=== PATIENT | male | born 1970 | race Caucasian/White ===

== ENCOUNTER 2016-04-01 21:16 | Emergency (ER) | payer BC ==
[2016-04-01] MEDS ORDERED: DIPH,PERTUS(ACELL)TETVAC-LF 0.5 ML VIAL IM ONE (21:49)
[2016-04-01] MEDS ORDERED: PROPARACAINE 0.5% OPHTH DROPS 15 ML BTL LEFT EYE STA (21:59)
[2016-04-01] MEDS ORDERED: PROPARACAINE 0.5% OPHTH DROPS 15 ML BTL LEFT EYE SCH (22:00)
--- NOTE | 2016-04-01 22:17 | ED ---
General Adult HPI - General Chief complaint: Wound/Laceration Stated complaint: head lac Time Seen by Provider: 04/01/16 21:38 Source: patient, RN notes reviewed Mode of arrival: ambulatory Limitations: no limitations - History of Present Illness Initial comments: This is a 45-year-old male presents with a laceration to the left side head. Patient states he was using resistance bands connected to a door to work out with when the door opened and 2 metal springs hit him in the left-sided head and left-sided jaw. Patient did not lose consciousness but is complaining of headache. Patient states he feels a foreign body sensation to the left eye and has noticed some blurred vision. Patient denies any neck pain or back pain. Patient is unsure if he is up-to-date on his tetanus shot. Patient denies any nausea or vomiting. Patient denies any recent fever, chills, shortness breath, chest pain, abdominal pain, nausea/vomiting/diarrhea, back pain, numbness, tingling, hematuria, or any other complaints. - Related Data Previous Rx's Medication Instructions Recorded Erythromycin Ophth Oint [Romycin 1 applic LEFT EYE QID 5 Days 04/01/16 Ophth Oint] HYDROcodone/APAP 5-325MG [Benedict 1 tab PO Q6HR #7 tab 04/01/16 5-325] Allergies Allergy/AdvReac Type Severity Reaction Status Date / Time Penicillins Allergy Rash/Hives Verified 04/01/16 21:21 Review of Systems ROS Statement: Those systems with pertinent positive or pertinent negative responses have been documented in the HPI. ROS Other: All systems not noted in ROS Statement are negative. Past Medical History Additional Past Medical History / Comment(s): back pain History of Any Multi-Drug Resistant Organisms: None Reported Past Surgical History: No Surgical Hx Reported Past Psychological History: No Psychological Hx Reported Smoking Status: Never smoker Past Alcohol Use History: None Reported Past Drug Use History: None Reported General Exam - General Exam Comments Initial Comments: General: The patient is awake and alert, in no distress, and does not appear acutely ill. Eye: Left eye with conjunctival injection. No foreign body noted with direct visualization or with eyelid inversion. Pupils are equal, round and reactive to light, extra-ocular movements are intact. No nystagmus. No signs of icterus. Visual acuity is equal on both sides. Patient does not have his glasses with him today. Mouth and throat: There is tenderness to palpation over the lower left side with localized swelling and erythema to this area. No laceration to the outside or inside the mouth. No loose teeth. Patient is able to bite down with strength 5/5. There are moist mucous membranes and no oral lesions. Neck: The neck is supple, there is no tenderness or JVD. No cervical midline tenderness. Cardiovascular: There is a regular rate and rhythm. No murmur, rub or gallop is appreciated. Respiratory: Lungs are clear to auscultation, respirations are non-labored, breath sounds are equal. No wheezes, stridor, rales, or rhonchi. Musculoskeletal: Normal ROM, no tenderness. Strength 5/5. Sensation intact. Radial pulses equal bilaterally 2+. Neurological: A&O x 3. CN II-XII intact, There are no obvious motor or sensory deficits. Coordination appears grossly intact. Speech is normal. Skin: There is an approximately 3 cm laceration to the left side scalp. There is some localized erythema and mild swelling around this area but no ecchymosis. Skin is warm and dry and no rashes or lesions are noted. Psychiatric: Cooperative, appropriate mood & affect, normal judgment. Limitations: no limitations Course Vital Signs 04/01/16 04/01/16 21:20 23:35 Temperature 98.1 F 97.7 F Pulse Rate 81 67 Respiratory 20 18 Rate Blood Pressure 136/90 142/84 O2 Sat by Pulse 98 99 Oximetry Procedures - Procedures Initial comment: Proparacaine was used to anesthetize the eye and fluorescein stain was applied to the left eye. Patient noticed relief after proparacaine was applied to the left. The left eye was viewed under the slit lamp and sim lamp. Corneal abrasion noted to the 4:00 area of the eye near the center of the eye. No foreign body was noted. Patient tolerated procedure well. The skin was anesthetized with 1% lidocaine. The laceration was then cleansed and irrigated with normal saline. The wound was inspected, and there was no evidence of injury to deep structures. No foreign body was noted in the wound. A total of 9 skin sutures were placed utilizing 5-0 Ethilon. Patient tolerated procedure well. Medical Decision Making - Medical Decision Making Is a 45-year-old male presents after getting hit in the head with workout equipment. On physical exam patient is neurologically intact. Left eye with conjunctival injection. No foreign body noted with direct visualization or with eyelid eversion. Pupils are equally round and reactive to light, extraocular movements are intact. There is an approximately 3cm laceration to the left side scalp. With some localized erythema and mild swelling but no ecchymosis. There is some localized swelling to the lower left jaw line that is tender to palpation with some localized erythema. Patient is able to bite down with strength 5/5. Xray of the mandible was done and reviewed showing: Negative mandible exam. Reported by Dr. Sandoval. Discussed results with patient. Patient was given a tylenol in the EC today for pain. Patient received a tetanus shot in the EC today. Proparacaine was used to anesthetize the eye and fluorescein stain was applied to the left eye. Patient noticed relief after proparacaine was applied to the left eye. The left eye was viewed under the slit lamp and sim lamp. Corneal abrasion noted to the 4:00 area of the eye near the center of the eye. No foreign body was noted. Patient tolerated procedure well. The skin was anesthetized with 1% lidocaine. The laceration was then cleansed and irrigated with normal saline. The wound was inspected, and there was no evidence of injury to deep structures. No foreign body was noted in the wound. A total of 9 skin sutures were placed utilizing 5-0 Ethilon. Discussed that if eye is not feeling 100% better by tomorrow night that he should schedule a follow-up appointment with ophthalmology. Discussed the patient will receive a prescription for antibiotic opthalmic ointment and Benedict. Discussed suture care with the patient. Discussed that sutures should be removed in 5 days. Discussed keep area clean and dry. Discussed signs and symptoms of worsening head injury. Discussed return parameters. Discussed that patient should follow up with PCP in one to 2 days or return to the EC for any worsening symptoms or for any further concerns. Patient was receptive to this plan and patient will be discharged home. I discussed this case with attending physician Dr. Leon who also examined the patient and agrees the plan as stated above. Disposition Clinical Impression: Laceration, Corneal abrasion Disposition: HOME SELF-CARE Condition: Good Instructions: Corneal Abrasion (ED), Care For Your Stitches (ED), Laceration ( ED) Additional Instructions: Please use ophthalmic ointment as prescribed. Please follow-up with ophthalmology if symptoms are not improved by tomorrow. Please have sutures removed in 5 days. Please follow-up with family doctor in the next 2 days of symptoms have not improved. Please return to emergency room if the symptoms increase or worsen or for any other concerns. Prescriptions: Erythromycin Ophth Oint [Romycin Ophth Oint] 1 applic LEFT EYE QID 5 Days HYDROcodone/APAP 5-325MG [Benedict 5-325] 1 tab PO Q6HR #7 tab Referrals: None,Stated [REFERRING] - 1-2 days Lilian Vaughan MD [STAFF PHYSICIAN] - 1-2 days Time of Disposition: 23:19
[2016-04-01] MEDS ORDERED: ERYTHROMYCIN 5 MG/GM OPHTH OINT 3.5 GM TUBE LEFT EYE STA (22:46)
--- NOTE | 2016-04-01 22:53 | XR ---
EXAMINATION TYPE: XR mandible complete DATE OF EXAM: 04/01/2016 10:49 PM COMPARISON: NONE HISTORY: Jaw pain TECHNIQUE: 5 views FINDINGS: The mandibular ring appears intact. I see no fracture. Maxilla appears intact. The temporom andibular joints appear normal. IMPRESSION: Negative mandible exam.
[2016-04-01] MEDS ORDERED: HYDROcodone/APAP 5-325MG 1 EACH TAB PO STA (23:17)
[2016-04-01] MEDS ORDERED: ACETAMINOPHEN TAB 500 MG TAB PO STA (23:23)
[2016-04-01 23:36] VITALS: BP 142/84; PULSE 67; RESP 18; TEMP 97.7
== END 2016-04-01 23:41 | disposition home or self-care (01) ==
LOC: EC 21:16
DX: S01.01XA Laceration without foreign body of scalp, initial encounter (principal); S05.02XA Injury of conjunctiva and corneal abrasion without foreign body, left eye, initial encounter; Z23 Encounter for immunization; Z88.0 Allergy status to penicillin; W20.8XXA Other cause of strike by thrown, projected or falling object, initial encounter; Y93.B9 Activity, other involving muscle strengthening exercises
CPT/HCPCS: 12002; 70110; 90471; 90715; 99283

== ENCOUNTER 2017-12-08 06:46 | Emergency (ER) | payer BC ==
[2017-12-08 07:09] VITALS: RESP 18
[2017-12-08] MEDS ORDERED: KETOROLAC 60 MG/2 ML VIAL IM STA (07:23)
[2017-12-08] MEDS ORDERED: ORPHENADRINE 30 MG/ML 2 ML VIAL IM STA (07:23)
[2017-12-08] MEDS ORDERED: DEXAMETHASONE SOD PHOSPHATE 10 MG/ML 1 ML VIAL IM STA (07:23)
--- NOTE | 2017-12-08 07:26 | ED ---
Back Pain HPI - General Chief Complaint: Back Pain/Injury Stated Complaint: Back pain Time Seen by Provider: 12/08/17 07:11 Source: patient, RN notes reviewed, old records reviewed Limitations: no limitations - History of Present Illness Initial Comments: 37-year-old male presents emergency department today with chief complaint of lower back pain. He reports that he isn't having back pain for the past 4 days. He reports he woke up the pain. Denies any heavy lifting or straining. Patient states that when he takes a few steps or slight twisting motion and he has a shooting pain on his left lower back. He reports no radiculopathy. Denies any saddle anesthesias. Patient states that he has had normal urine symptoms. Patient denies bowel or urinary incontinence. Patient states that he 's had this happen once before in the past and did follow-up with database management specialist. He had an MRI 3 years ago. He reports that he was told it was normal this time. He states that he does usually have this pain about once a year. - Related Data Previous Rx's Medication Instructions Recorded Erythromycin Ophth Oint [Romycin 1 applic LEFT EYE QID 5 Days gm 04/01/16 Ophth Oint] HYDROcodone/APAP 5-325MG [Compton 1 tab PO Q6HR #7 tab 04/01/16 5-325] Cyclobenzaprine [Flexeril] 10 mg PO TID #12 tab 12/08/17 Dexamethasone 0.75 mg PO DAILY #12 tab 12/08/17 HYDROcodone/APAP 5-325MG [Compton 1 tab PO Q6HR PRN 3 Days #10 tab 12/08/17 5-325] Allergies Allergy/AdvReac Type Severity Reaction Status Date / Time Penicillins Allergy Rash/Hives Verified 04/01/16 21:21 Review of Systems ROS Statement: Those systems with pertinent positive or pertinent negative responses have been documented in the HPI. ROS Other: All systems not noted in ROS Statement are negative. Past Medical History Additional Past Medical History / Comment(s): back pain History of Any Multi-Drug Resistant Organisms: None Reported Past Surgical History: No Surgical Hx Reported Past Psychological History: No Psychological Hx Reported Smoking Status: Current every day smoker Past Alcohol Use History: None Reported Past Drug Use History: None Reported General Exam - General Exam Comments Initial Comments: 47-year-old male. Alert and oriented. No significant distress. General: Well appearing, well nourished, in no distress. Oriented x 3, normal mood and affect . Ambulating without difficulty. Skin: Good turgor, no rash, unusual bruising or prominent lesions Hair: Normal texture and distribution. Neck: Supple, without lesions, bruits, or adenopathy, thyroid non-enlarged and non-tender Heart: No cardiomegaly or thrills; regular rate and rhythm, no murmur or gallop Lungs: Clear to auscultation and percussion Back: Spine normal without deformity or tenderness, no CVA tenderness, Patient reports pain with ambulation over the left lumbar spine. Rectal: Normal sphincter tone, no hemorrhoids or masses palpable Extremities: No amputations or deformities, cyanosis, edema or varicosities, peripheral pulses intact Musculoskeletal: Normal gait and station. No misalignment, asymmetry, crepitation, defects, tenderness, masses, effusions, decreased range of motion, instability, atrophy or abnormal strength or tone in the head, neck, spine, ribs , pelvis or extremities. Neurologic: CN 2-12 normal. Sensation to pain, touch, and proprioception normal. Psychiatric: Oriented X3, intact recent and remote memory, judgment and insight , normal mood and affect. Limitations: no limitations Course Vital Signs 12/08/17 07:07 Temperature 98.3 F Pulse Rate 66 Respiratory 18 Rate Blood Pressure 125/85 O2 Sat by Pulse 99 Oximetry Medical Decision Making - Medical Decision Making 47-year-old male presents with for his back pain. He did see a chiropractor. He reports a that shooting pain. Patient had IM Toradol and Norflex and dexamethasone. Patient has no radicular process. Normal sensation of the legs. No saddle anesthesias. X-ray of lumbar spine shows evidence of left- sided truncal curvature likely related muscle spasm. No evidence of any acute disease within spine. Urinalysis was negative. At this time Patient will be treated for muscle spasm and likely pinched nerve. Given referral for spinal specialist. We'll discharge patient's reports the pain medication muscle relaxers steroid. Patient received treatment will comply. Return parameters were discussed. - Lab Data Lab Results 12/08/17 Range/Units 07:27 Urine Color Yellow Urine Appearance Clear (Clear) Urine pH 6.0 (5.0-8.0) Ur Specific [place] 1.019 (1.001-1.035) Urine Protein Negative (Negative) Urine Glucose (UA) Negative (Negative) Urine Ketones Negative (Negative) Urine Blood Negative (Negative) Urine Nitrite Negative (Negative) Urine Bilirubin Negative (Negative) Urine Urobilinogen <2.0 (<2.0) mg/dL Ur Leukocyte Esterase Negative (Negative) - Radiology Data Radiology results: report reviewed Leftward truncal shift may be positional or secondary muscle spasm. Multilevel degenerative disease. No vertebral compression collapse or malalignment. Disposition Clinical Impression: Lumbar paraspinal muscle spasm, Acute low back pain Disposition: HOME SELF-CARE Condition: Good Instructions: Acute Low Back Pain (ED) Additional Instructions: Patient has follow-up with primary care provider. Return to emergency department if any alarming signs or symptoms occur. Prescriptions: Cyclobenzaprine [Flexeril] 10 mg PO TID #12 tab Dexamethasone 0.75 mg PO DAILY #12 tab HYDROcodone/APAP 5-325MG [Compton 5-325] 1 tab PO Q6HR PRN 3 Days #10 tab PRN Reason: Pain Is patient prescribed a controlled substance at d/c from ED?: Yes When asked, does pt state using other controlled substances?: No If prescribed controlled substance>3 days was MAPS reviewed?: Prescribed <3 Days If opioid is for acute pain is fill amount 7 days or less?: Yes If Rx opioid, was Start Talking consent form obtained?: Yes Referrals: Jarocho Stafford MD [Primary Care Provider] - 1-2 days Time of Disposition: 08:24
[2017-12-08 07:46] LABS: Appearance,Urine Clear (Clear); Bilirubin,Urine Negative (Negative); Blood,Urine Negative (Negative); Color,Urine Yellow; Glucose,Urine (UA) Negative (Negative); Ketones,Urine Negative (Negative); Leukocyte Esterase,Urine Negative (Negative); Nitrite,Urine Negative (Negative); Protein,Urine Negative (Negative); Specific Gravity,Urine 1.019 (1.001-1.035); Urobilinogen,Urine <2.0 mg/dL (<2.0)
--- NOTE | 2017-12-08 08:03 | XR ---
EXAMINATION TYPE: XR lumbar spine 2 or 3V DATE OF EXAM: 12/08/2017 COMPARISON: NONE HISTORY: 47-year-old male low back pain for 2 days TECHNIQUE: 3 views FINDINGS: 5 lumbar type vertebral bodies. There is leftward truncal shift which may be positional. Mild multile arlette endplate spondylosis and mild facet arthropathy lower lumbar spine. Vertebral body heights are pr eserved and alignment is maintained. IMPRESSION: Leftward truncal shift may be positional or could be secondary to muscle spasm. There is mild multile arlette degenerative disc disease. No vertebral compression collapse or malalignment.
[2017-12-08 08:21] VITALS: BP 120/73; PULSE 63; TEMP 97
== END 2017-12-08 08:34 | disposition home or self-care (01) ==
LOC: EC 06:46
DX: M62.830 Muscle spasm of back (principal); F17.200 Nicotine dependence, unspecified, uncomplicated; Z88.0 Allergy status to penicillin
CPT/HCPCS: 81003; 72100; 99284; 96372 ×3; J1100; J2360; J1885

== ENCOUNTER 2021-02-01 06:59 | Day surgery (SDC) | payer BC ==
[2021-01-30 13:08] VITALS: BMI 25.7
[2021-02-01 07:26] VITALS: RESP 16; TEMP 97.7
[2021-02-01] MEDS ORDERED: LACTATED RINGERS 1,000 ML IV ONE (07:27)
[2021-02-01] MEDS ORDERED: PROPOFOL 10 MG/ML 20 ML VIAL IV ONE (08:05)
[2021-02-01] MEDS ORDERED: LIDOCAINE 1% INJ 10MG/ML (20 ML MDV) ONE (08:05)
--- NOTE | 2021-02-01 08:20 | P.PCN ---
Date of Procedure: 02/01/21 Procedure(s) Performed: BRIEF HISTORY: Patient is a 50-year-old pleasant white male scheduled for an elective colonoscopy as a part of screening for colorectal neoplasia. PROCEDURE PERFORMED: Colonoscopy. PREOPERATIVE DIAGNOSIS: Screening for colon cancer. IV sedation per Anesthesia. PROCEDURE: After informed consent was obtained, the patient, was brought into the endoscopy unit. IV sedation was administered by Anesthesia under continuous monitoring. Digital rectal examination was normal. Initially the Olympus CF-160 flexible video colonoscope was then inserted in the rectum, gradually advanced into the cecum without any difficulty. Careful examination was performed as the scope was gradually being withdrawn. Ileocecal valve and the appendiceal orifice were visualized and appeared normal. Prep was excellent. Mucosa of the cecum, ascending colon, transverse colon, descending colon, sigmoid colon, and rectum appeared normal. Retroflexion was performed in the rectum and no lesions were seen. The patient tolerated the procedure well. IMPRESSION: Normal-appearing colon from rectum to cecum with no evidence of colorectal neoplasia . RECOMMENDATIONS: Findings of this examination were discussed with the patient as well as his family.. He was advised to have a repeat screening colonoscopy in 10 years
[2021-02-01 08:47] VITALS: BP 121/72; PULSE 60
== END 2021-02-01 09:16 | disposition home or self-care (01) ==
LOC: ORWHC2ENDO 06:59
PROVIDERS: ATTEND Internal Medicine Gastroenterology
DX: Z12.11 Encounter for screening for malignant neoplasm of colon (principal)
CPT/HCPCS: 45378; J2001; J2704

== ENCOUNTER → 2022-07-14 | Outpatient (CLI) | payer BC ==
--- NOTE | 2022-07-14 23:03 | MR ---
EXAMINATION TYPE: MR lumbar spine wo con DATE OF EXAM: 07/14/2022 COMPARISON: Lumbar spine x-ray December 08, 2017 HISTORY: Low back pain for 6-7 years. Intervertebral disc disorder. TECHNIQUE: Multiplanar, multisequence imaging of the lumbar spine is performed without IV contrast. FINDINGS: Sagittal images of the lumbar spine show vertebral body heights and alignment to appear sat isfactory. Prominent Schmorl node inferior L3 endplate sagittal image 8 is noted. Multilevel disc ariela iccation L3-L4 through the L5-S1 levels but the disc space heights are preserved. The conus medullar is is normal in position and signal ending at mid L1 level. The bone marrow signal intensity is with in normal limits. Axial images show T12-L1 and L1-L2 levels to appear within normal limits. Axial images L2-L3 level shows mild broad-based posterior disc protrusion and mild facet arthropathy bilaterally. Spinal canal is preserved. Axial images at L3-L4 level shows mild mild broad-based posterior disc protrusion mildly effacing the anterior thecal sac and causing mild bilateral anterior inferior neural foraminal narrowing. Axial images at L4-L5 level show mild facet arthropathy bilaterally. There is mild/moderate broad-bas ed disc bulge causing moderate left greater than right bilateral neural foraminal narrowing and mild effacement of the anterior thecal sac. Axial images at L5-S1 level show small broad-based disc protrusion and mild facet arthropathy bilater ally. There is mild left and moderate right-sided neural foraminal narrowing. Right foraminal compone nt may efface the right L5 nerve on sagittal image 13. Paraspinal muscle bulk is preserved. IMPRESSION: Multilevel degenerative change in the mid to lower lumbar spine as detailed above.
== END | disposition home or self-care (01) ==
LOC: RADMRIMAIN 18:53
PROVIDERS: ATTEND Pain Medicine Interventional Pain Medicine
DX: M51.16 Intervertebral disc disorders with radiculopathy, lumbar region (principal); M47.26 Other spondylosis with radiculopathy, lumbar region
CPT/HCPCS: 72148

== ENCOUNTER → 2024-04-26 | Outpatient (CLI) | payer BC ==
--- NOTE | 2024-04-26 22:57 | CTL ---
EXAMINATION TYPE: CT Low Dose Lung DATE OF EXAM: 04/26/2024 5:40 PM COMPARISON: None. SCREENING VISIT: Initial CT DIAGNOSTIC QUALITY: Limited, but interpretable CLINICAL INDICATION: Male, 53 years old with history of Z12.2, Z87.891, Lung screening for nicotine d ependence of 1ppd x31 years, quit smoking 08/2023., Lung cancer screening, History of tobacco use. TECHNIQUE: Low dose computed tomography scan was performed through the chest at 1 mm thick sections a nd reconstructed images in the coronal plane at 1 mm thick sections. Contrast used: mL of , (none if empty) Oral contrast used: (none if empty) CT DLP: 86 mGycm, Automated exposure control for dose reduction was used. CT CTDI: 2.8 mGy, Automated exposure control for dose reduction was used. FINDINGS: LUNG NODULES: None. LUNGS: COPD: Severity: None Fibrosis: Severity: None Lymph nodes: None Other findings: None RIGHT PLEURAL SPACE: Effusion: None Calcification: None Thickening: None Pneumothorax: None LEFT PLEURAL SPACE: Effusion: None Calcification: None Thickening: None Pneumothorax: None HEART: Other: Ascending thoracic aorta at the level the main pulmonary artery measures 4.0 cm. The main pul monary artery at the bifurcation measures2.4 cm. Heart Size: Normal Coronary calcification: Pericardial effusion: None OTHER FINDINGS: Upper abdomen: Normal Bony thorax: Normal Supraclavicular region: Normal IMPRESSION: 1. No suspicious changes to suggest primary or metastatic neoplasm. 2. Ascending thoracic aortic aneurysm 4.[address] CHEST RECOMMENDATION: Follow-up low-dose CT chest one year CT LUNG RAD: Lung-Rad 1 Negative [facility], Workstation: [facility], 04/26/2024 10:54 PM
== END | disposition home or self-care (01) ==
LOC: RADCTMAIN 16:24
PROVIDERS: ATTEND Family Medicine
DX: Z12.2 Encounter for screening for malignant neoplasm of respiratory organs (principal); I71.21 Aneurysm of the ascending aorta, without rupture; Z87.891 Personal history of nicotine dependence
CPT/HCPCS: 71271